=== PATIENT | male | born 1955 | race Caucasian/White ===

== ENCOUNTER 2022-09-06 01:11 | Day surgery (SDC) | payer OTHER, SELFPAY ==
[2022-08-19 14:12] VITALS: BMI 25.9
--- NOTE | 2022-09-05 09:28 | P.PNAN_ITS ---
Anes - Initial Pre Proc Eval Procedure: Operation Date: 09/06/22 07:30 Proposed Procedures p Screening Colonoscopy - Sb Bailey MD Date/Time: 09/05/22 09:28 Surgeon: Sb Bailey MD Pre Op Diagnosis: family hx colon ca Patient Data Age: 66 Gender: M Height: 1.68 m Weight: 73 kg Allergies Allergy/AdvReac Type Severity Reaction Status Date / Time No Known Allergies Allergy Unknown Verified 09/06/22 06:25 Home Medications Medication Instructions Recorded Confirmed Type verapamil 240 mg 24 hr 240 mg PO DAILY #90 caps 11/26/21 09/06/22 Rx capsule,extended release hydralazine 25 mg tablet 25 mg PO BID #180 tabs 02/23/22 09/06/22 Rx finasteride 5 mg tablet (Proscar) 5 mg PO DAILY #30 tabs 09/01/22 09/06/22 Rx Patient hx anesthesia problems: none Family hx anesthesia problems: none Results Review: All pre-operative results and documents have been reviewed as part of the pre- operative evaluation. [facility] Past Medical History Medical History (Updated 06/28/22 @ 10:12 by David Weinstein MD) BMI 25.0-25.9,adult BMI 26.0-26.9,adult BPH loc w urin obs/LUTS Colonoscopy planned Cutaneous horn Essential (primary) hypertension Family hx of colon cancer Kidney infection Left wrist fracture x2 Nephritis Normal colonoscopy Right rotator cuff tear Screening for prostate cancer Sinus infection Surgical History Surgical History H/O repair of right rotator cuff H/O sinus surgery History of tonsillectomy Family History Family History Father Malignant neoplasm of prostate Carcinoma of colon Social History Social History Smoking status: Never smoker Alcohol intake: current Substance use: never Living arrangements: with family Spiritual care concerns: No Anes - Eval Final PreProcedure Day of Procedure 09/05/22 09:28 Patient weight: overweight Heart: regular rate and rhythm Lungs: clear to auscultation Airway: Mallampati scale class II Neurological: alert and oriented Last oral intake: >/= 8 hours ASA classification: II Emergent: no Anesthetic plan: proceed Anesthesia type and monitoring: general GIVS and standard monitoring Results Review: All pre-operative results and documents have been reviewed as part of the pre- operative evaluation. Informed Consent: The patient's anesthetic plan and its attendant risks and benefits were discussed with the patient/family/POA. Questions were solicited and answers provided to the satisfaction of the patient/family/POA.
[2022-09-06 06:15] VITALS: BP 148/94; PULSE 87; RESP 18; TEMP 36.4; O2SAT 100; BMI 26.2
[2022-09-06] MEDS: LACTATED RINGERS 1,000 ML 150 ML IV CONT (06:36)
--- NOTE | 2022-09-06 07:21 | PM.HPGS ---
History of Present Illness History of Present Illness Consent: Risks, benefits, and alternatives have been discussed and questions answered. Patient agrees to proceed with procedure. Chief complaint: family hx colon ca Narrative: Rufus Sharp is a 66 year old male with last colonoscopy 5 years ago, father had colon cancer Review of Systems Constitutional: Constitutional: Denies headache(s) and Denies weakness Eyes: Eyes: Denies blurry vision ENT: Reports Normal hearing present, Denies headache(s) and Denies neck pain Cardiovascular: Cardiovascular: Denies chest pain and Denies dyspnea Respiratory: Respiratory: Denies dyspnea Gastrointestinal: Gastrointestinal: Reports no additional gastrointestinal complaints Genitourinary: Genitourinary: Denies dysuria Musculoskeletal: Musculoskeletal: Denies neck pain Integumentary/Breasts: Skin/Breast: Denies dry skin Neurologic: Reports Normal hearing present, Denies headache(s) and Denies weakness Psychiatric: Psychiatric: Denies anxiety Endocrine: Endocrine: Denies change in body appearance Hematologic/Lymphatic: Hematologic/Lymphatic: Denies easy bleeding Allergic/Immunologic: Allergic/Immunologic: Denies urticaria PMFSH Past Medical History Medical History (Updated 06/28/22 @ 10:12 by David Weinstein MD) BMI 25.0-25.9,adult BMI 26.0-26.9,adult BPH loc w urin obs/LUTS Colonoscopy planned Cutaneous horn Essential (primary) hypertension Family hx of colon cancer Kidney infection Left wrist fracture x2 Nephritis Normal colonoscopy Right rotator cuff tear Screening for prostate cancer Sinus infection Surgical History Surgical History H/O repair of right rotator cuff H/O sinus surgery History of tonsillectomy Family History Family History Father Malignant neoplasm of prostate Carcinoma of colon Social History Social History Smoking status: Never smoker Alcohol intake: current Substance use: never Living arrangements: with family Spiritual care concerns: No Meds Home Medications and Allergies Home Medications Medication Instructions Recorded Confirmed Type verapamil 240 mg 24 hr 240 mg PO DAILY #90 caps 11/26/21 09/06/22 Rx capsule,extended release hydralazine 25 mg tablet 25 mg PO BID #180 tabs 02/23/22 09/06/22 Rx finasteride 5 mg tablet (Proscar) 5 mg PO DAILY #30 tabs 09/01/22 09/06/22 Rx Allergies Allergy/AdvReac Type Severity Reaction Status Date / Time No Known Allergies Allergy Unknown Verified 09/06/22 06:25 Vital Signs Vital Signs - 24 hr 09/06/22 06:15 Temperature 97.6 F Pulse Rate 87 Respiratory Rate 18 Blood Pressure 148/94 H Pulse Oximetry 100 Oxygen Delivery Room Air Exam Const: General: comfortable and no acute distress HENMT: Face/Nose/Sinus: Normal nares present Eyes: General: appearance normal, both eyes and all related structures Neck: Neck: no JVD Resp: Auscultation: clear to auscultation bilaterally Cardio: Rate: regular rate Rhythm: regular rhythm GI: Inspection: non-distended GI Palp: Yes Soft to palpation Skin: General skin exam: normal color Neuro: General: gait normal Speech: normal speech Extrem: General: normal to inspection Psych: Mental Status: mental status grossly normal Assessment and Plan Assessment and plan (1) Family hx of colon cancer: Code(s): Z80.0 - Family history of malignant neoplasm of digestive organs Status: Acute Assessment and Plan: colonoscopy
[2022-09-06 07:53] VITALS: BP 119/86; PULSE 73; RESP 23; O2SAT 95
[2022-09-06 08:03] VITALS: BP 130/92; PULSE 68; RESP 21; O2SAT 98
[2022-09-06 08:13] VITALS: BP 136/92; PULSE 68; RESP 13; O2SAT 96
== END 2022-09-06 08:14 | disposition home or self-care (01) ==
PROVIDERS: PCP Family Medicine; Visit Provider Internal Medicine Gastroenterology
PROC: 0DJD8ZZ Inspection of Lower Intestinal Tract, Via Natural or Artificial Opening Endoscopic (ICD-10-PCS; CPT 45378; principal; 2022-09-06 07:30)
DX: Z12.11 Encounter for screening for malignant neoplasm of colon (principal); D12.3 Benign neoplasm of transverse colon; K64.8 Other hemorrhoids; Z80.0 Family history of malignant neoplasm of digestive organs; I10 Essential (primary) hypertension
CPT/HCPCS: 45385; 88305; J2704; J7120

== ENCOUNTER → 2022-11-22 10:17 | Outpatient (CLI) | payer OTHER, SELFPAY ==
--- NOTE | ~2022-11-22 | XR_ITS ---
Supine and upright views of the abdomen Clinical history: Constipation, dysuria COMPARISON: 05/27/2019 Findings: Bowel gas pattern is nonspecific. No evidence for obstruction or free air. No abnormal mass lesion or calcification is seen. Osseous structures are intact. Impression: No significant abnormality is seen. Reviewed, dictated and finalized at [facility]. Impression: No significant abnormality is seen.
== END ==
PROVIDERS: PCP Family Medicine; Visit Provider Nurse Practitioner Family
DX: R39.9 Unspecified symptoms and signs involving the genitourinary system (principal); K59.00 Constipation, unspecified
CPT/HCPCS: 74018